=== PATIENT | male | born 1985 | race Caucasian/White ===

== ENCOUNTER → 2019-10-20 | Outpatient (CLI) | payer OTHER ==
[~2019-10-20] MED LIST: GADOTERATE 5 MMOL/10ML VIAL. IVP ONE
--- NOTE | 2019-10-20 12:44 | KCIC ---
EXAM: Brain and pituitary MRI with and without contrast. HISTORY: Low testosterone. Fatigue. TECHNIQUE: Multiplanar, multisequence magnetic resonance imaging of the brain and pituitary was performed prior to and following the administration of intravenous contrast. COMPARISON: None. FINDINGS: There is no restricted diffusion to suggest acute or subacute infarction. There is no susceptibility effect to suggest hemorrhage. There is no mass effect or midline shift. There is no hydrocephalus. No suspicious white matter lesion is seen. There are normal flow voids within the cerebral vessels. The orbits, paranasal sinuses and mastoid air cells are unremarkable. There is no calvarial lesion. The pituitary is normal in size and demonstrates uniform enhancement. The optic chiasm is midline and normal in thickness. The sella is normal in size. IMPRESSION: No acute intracranial finding or evidence of a pituitary lesion. Electronically signed by: Selma Vickers MD (10/20/2019 12:41 PM) [facility] [place]
== END | disposition home or self-care (01) ==
LOC: KCIC MRI 11:32
DX: R53.83 Other fatigue (principal); R86.1 Abnormal level of hormones in specimens from male genital organs
CPT/HCPCS: 70553; A9575